=== PATIENT | male | born 1950 | race Asian ===

== ENCOUNTER 2022-10-29 21:12 | Emergency (ER) | payer MEDICARE, BC, OTHER ==
[~2022-10-29] VITALS: Ht 170.2 cm; Wt 63.5 kg
--- NOTE | 2022-10-29 21:50 | NUR ---
Dr. Tucker evaluated patient at bedside. MSE in progress.
--- NOTE | 2022-10-30 01:17 | NUR ---
Patient's left upper dialysis chest shunt shows no bleeding. Placed dry dressing.
--- NOTE | 2022-10-30 01:57 | NUR ---
Called [facility] ambulance for BLS ambulance ride for patient going back to [facility]
--- NOTE | 2022-10-30 02:03 | NUR ---
Gave report to nurse at [facility] to notify of patient discharge.
--- NOTE | 2022-10-30 02:52 | NUR ---
Patient picked up by [facility] ambulance to transfer patient back to [facility] via gurney with personal belongings. Patient in stable condition, no signs of distress noted. Dressing to left upper chest dry and intact, no signs of active bleed noted.
[2022-10-30 04:21] VITALS: BP 155/69
== END 2022-10-30 02:52 ==
LOC: ER 21:12
DX: E11.22 Type 2 diabetes mellitus with diabetic chronic kidney disease (principal); N18.6 End stage renal disease; Z99.2 Dependence on renal dialysis
CPT/HCPCS: A4663